=== PATIENT | female | born 1960 | race Caucasian/White ===

== ENCOUNTER 2021-06-05 22:03 | Emergency (ER) | payer OTHER ==
[~2021-06-05] VITALS: Ht 162.6 cm; Wt 74.0 kg
[2021-06-05] MEDS ORDERED: ONDANSETRON 4MG ODT PO ONE (22:45)
[2021-06-05] MEDS ORDERED: MECLIZINE 25MG TABLET PO ONE (22:45)
[2021-06-06 00:31] LABS: BASOPHILS % 0.4 % (0.0-2.0); HEMATOCRIT. 39.8 % (36.0-48.0); HEMOGLOBIN. 13.5 g/dL (12.0-16.0); LYMPHOCYTES % 10.1 % (20.0-50.0); MEAN CORPUSCULAR HEMOGLOBIN 31.7 pg (28.0-32.0); MEAN CORPUSCULAR VOLUME 93.2 fL (81.0-99.0); MEAN PLATELET VOLUME 8.2 fl (7.4-10.4); MONOCYTES % 3.2 % (2.0-8.0); NEUTROPHILS % 86.3 % (40.0-76.0); PLATELET 373 x1000/uL (130-400); RED BLOOD CELL COUNT 4.27 mill/uL (4.2-5.4); RED CELL DISTRIBUTION WIDTH 13.9 % (11.6-14.6)
[2021-06-06 00:36] LABS: CHLORIDE 104 mEq/L (98-107)
[2021-06-06 00:40] LABS: ETHANOL BLOOD < 10 mg/dL
[2021-06-06] MEDS ORDERED: KETOROLAC 15MG/ML VIAL IM ONE (04:15)
[2021-06-06] MEDS ORDERED: MECL-159 MT (05:45)
[2021-06-06 06:31] VITALS: BP 145/90
== END 2021-06-06 06:31 | disposition home or self-care (01) ==
LOC: ER 22:03
DX: R10.9 Unspecified abdominal pain (principal); R42 Dizziness and giddiness; I10 Essential (primary) hypertension; Z88.5 Allergy status to narcotic agent
CPT/HCPCS: 36415; 70450; 74176; 76705; 80053; 80320; 83690; 84484; 85025; 93005; 96372; 99285; J1885; Q0162; J8597; G0480